=== PATIENT | male | born 1945 | race Caucasian/White ===

== ENCOUNTER 2019-08-18 10:06 | Emergency (ER) | payer MEDICARE ==
[~2019-08-18] VITALS: Ht 182.9 cm; Wt 90.7 kg
[2019-08-18 10:12] VITALS: BP_SYST 186
--- NOTE | 2019-08-18 10:12 | NUR ---
Placed in room 6 . Placed on monitor technician, blood pressure machine and pulse oximeter. To gown for exam. Side rails up. Report given to SU Cabrera.
[2019-08-18] MEDS ORDERED: NACL 0.9% 1,000 ML IV ONE (10:13)
[2019-08-18] MEDS ORDERED: MORPHINE 4 MG/ML INJ. SYRINGE IVP ONE (10:15)
[2019-08-18] MEDS ORDERED: VANCOMYCIN HCL 1,000 MG in D5W 250 ML IV ONE (10:15)
--- NOTE | 2019-08-18 10:15 | NUR ---
Patient arrived in the ED c/o lower abdominal pain with diarrhea, fevers, chills that started 3-4 days ago. Denied any chest pain. Patient is alert and oriented x4 and speaking in full sentences. VSS, pain level 8/10. Informed of wait time. Instructed to notify ED staff for any changes in condition or worsening of symptoms. Patient verbalized understanding.
--- NOTE | 2019-08-18 10:16 | NUR ---
ER Dr. Laurent at bedside examining patient.
[2019-08-18] MEDS ORDERED: ACETAMINOPHEN 500 MG TABLET PO ONE (10:30)
[2019-08-18] MEDS ORDERED: IBUPROFEN 800 MG TABLET PO ONE (10:30)
--- NOTE | 2019-08-18 10:30 | NUR ---
# 20 gauge angiocath placed to LFA. Use of asceptic technique. Opsite placed over site. Blood return noted. Blood for lab drawn from site. Flushed with 10 cc of normal saline. No evidence of infiltration noted. Patient tolerated well.
[2019-08-18 10:39] LABS: HEMATOCRIT 30.8 % (36-54); HEMOGLOBIN 10.1 g/dL (14.0-18.0); MEAN CORPUSCULAR HEMOGLOBIN 30 pg (27-31); MEAN CORPUSCULAR HGB CONC 33 % (32-36); MEAN CORPUSCULAR VOLUME 92 fL (79.0-98.0); PLATELET COUNT (AUTO) 429 K/uL (130-430); RED BLOOD CELL COUNT(AUTO) 3.37 MIL/uL (4.2-6.2); RED CELL DISTRIBUTION WIDTH 17.6 % (9.0-15.0); WHITE BLOOD COUNT (AUTO) 22.9 K/uL (4.8-10.8)
[2019-08-18 10:48] LABS: ANION GAP 17 (5-15); CALCIUM 8.6 mg/dL (8.4-11.0); CHLORIDE 100 mmol/L (98-107); CREATININE 6.56 mg/dL (0.55-1.30); GLUCOSE 116 mg/dL (70-99); SODIUM SERUM 132 mmol/L (136-145); UREA NITROGEN, BLOOD 86 mg/dL (8-21)
[2019-08-18] MEDS ORDERED: VANCOMYCIN HCL 1000 MG/VIAL IV ONE (10:48)
--- NOTE | 2019-08-18 10:50 | NUR ---
# 16 FR Rizzo catheter with use of sterile technique. Immediate return of 650 cc cloudy light brown urine noted. Bedside drainage bag placed below level of bladder. Urine sample collected and sent to lab. Pt tolerated procedure well. Patient arrived with rizzo in place, changed due to standard of practice prior to admission. Patient unable to toilet self.
--- NOTE | 2019-08-18 10:50 | NUR ---
set up mold technician at bedside collecting blood specimen as ordered by Dr. Laurent. Patient tolerated the procedure well.
[2019-08-18 10:51] LABS: INR 1.1 (0.80-1.20); PROTHROMBIN TIME 10.9 SECS (9.5-12.5)
[2019-08-18 10:54] LABS: BILIRUBIN,URINE NEGATIVE (NEGATIVE); BLOOD, URINE 3+ (NEGATIVE); CLARITY/URINE CLOUDY (CLEAR); COLOR,URINE YELLOW (YELLOW); GLUCOSE,URINE NEGATIVE (NEGATIVE); KETONES,URINE NEGATIVE (NEGATIVE); LEUKOCYTE ESTERASE ,URINE 3+ (NEGATIVE); NITRITE, URINE POSITIVE (NEGATIVE); PROTEIN URINE 2+ (NEGATIVE); UROBILINOGEN,URINE 0.2 (0.2-1.0)
[2019-08-18 10:54] LABS: ALANINE AMINOTRANSFERASE 20 U/L (12-78); ALBUMIN 3.5 g/dL (3.4-4.8); AMYLASE 113 U/L (0-100); ASPARTATE AMINOTRANSFERASE 16 U/L (10-37); LIPASE 121 U/L (73-393); TOTAL BILIRUBIN 0.5 mg/dL (0.0-1.0)
[2019-08-18] MEDS ORDERED: POTA10TA15 PO (11:03)
[2019-08-18] MEDS ORDERED: AMLO5TAB4 PO (11:03)
[2019-08-18] MEDS ORDERED: LACT1CAP72 PO (11:03)
[2019-08-18] MEDS ORDERED: VANC125C10 PO (11:03)
[2019-08-18] MEDS ORDERED: ACET-2165 PO (11:03)
[2019-08-18 11:04] LABS: BACTERIA,URINE FEW /HPF (None Seen); MUCUS,URINE 1+ /LPF (None Seen); RBC,URINE 20-50 /HPF (0-3); WBC,URINE >100 /HPF (0-3)
[2019-08-18 11:10] LABS: BAND % (MANUAL) 20 % (0-6); BASOPHILS % (MANUAL) 0 % (0-2); EOSINOPHILS % (MANUAL) 0 % (0-7); LYMPHOCYTES % (MANUAL) 4 % (20-46); MONOCYTES % (MANUAL) 1 % (0-11)
--- NOTE | 2019-08-18 13:00 | NUR ---
Patient is resting comfortably in bed.
[2019-08-18] MEDS ORDERED: cefTRIAXone 1 GM IVPB PREMIX 50 ML IV ONE (13:30)
--- NOTE | 2019-08-18 15:06 | NUR ---
Gave report to SU Shepard of [facility] Jorge Rodríguez at [phone].
[2019-08-18 15:45] VITALS: BP_SYST 138
--- NOTE | 2019-08-18 15:47 | NUR ---
Patient to be transferred to [facility]. Is being transferred due to higher level of care. Receiving facility has accepting physician and available space. ER physician has signed transfer form. Patient or responsible republican has agreed to transfer and signed form. Patient belongings inventoried and will be sent with patient. Copy of nursing notes, lab reports, EKG, Physicians Orders and X-rays to be sent with patient. Report called to SU Shepard at receiving facility. Receiving physician is Dr. Bernard Willett. [facility] ambulance service has been called for transfer. ETA is [id number].
== END 2019-08-18 15:47 | disposition short-term general hospital (02) ==
LOC: SED 10:06
DX: A41.9 Sepsis, unspecified organism (principal); R31.9 Hematuria, unspecified; N12 Tubulo-interstitial nephritis, not specified as acute or chronic; N17.9 Acute kidney failure, unspecified; I10 Essential (primary) hypertension; Z79.899 Other long term (current) drug therapy
CPT/HCPCS: 36415; 51702; 71045; 80053; 81000; 82150; 82550; 83605; 83690; 84484; 85007; 85027; 85610; 85730; 86710; 87040; 87086; 87186; 93005; 96365; 96366; 96367; 96375; 99285; J0696; J2270; J3370; J7030